=== PATIENT | male | born 1995 | race African-American/Black ===

== ENCOUNTER → 2016-11-10 14:29 | Emergency (ER) | payer SELFPAY ==
[~2016-11-10 14:29] MED LIST: ADDERALL30 MG PO; TYLENOL WITH C1 EACH PO
== END | disposition left against medical advice (07) ==
LOC: EME 14:29
DX: T40.1X1A Poisoning by heroin, accidental (unintentional), initial encounter (principal); G93.89 Other specified disorders of brain
CPT/HCPCS: J2310

== ENCOUNTER → 2016-11-11 21:40 | Emergency (ER) | payer SELFPAY | END | disposition left against medical advice (07) | LOC: EME 21:40 | DX: T40.1X1A Poisoning by heroin, accidental (unintentional), initial encounter (principal); Z53.21 Procedure and treatment not carried out due to patient leaving prior to being seen by health care provider | CPT/HCPCS: J2310 ==